=== PATIENT | male | born 1950 | race Asian ===

== ENCOUNTER 2017-08-27 16:05 | Outpatient (CLI) | payer OTHER ==
[2017-08-27] MEDS ORDERED: LORA0.5T17 PO ×2 (16:36→16:45)
[2017-08-27] MEDS ORDERED: TOPROL XL200 M1 PO (16:38)
[2017-08-27] MEDS ORDERED: CARDIZEM LA360 M1 PO (16:38)
[2017-08-27] MEDS ORDERED: ELIQUIS5 MG PO (16:39)
[2017-08-27] MEDS ORDERED: METF500T PO (16:41)
[2017-08-27] MEDS ORDERED: ZOFRAN8 MG PO (16:42)
[2017-08-27] MEDS ORDERED: HUMALOG KWI100 MG/ML SC (16:44)
[2017-08-27] MEDS ORDERED: CARDIZEM PO (22:27)
[2017-08-27] MEDS ORDERED: TYLENOL325 MG PO (22:29)
[2017-09-09] MEDS ORDERED: LORA10TA3 PO (11:08)
[2017-09-09] MEDS ORDERED: ESCI10TA PO (11:08)
[2017-09-09] MEDS ORDERED: [UNRECOGNIZED DRUG - CODE] IM (11:09)
[2017-09-09] MEDS ORDERED: RISP0.25 PO (11:09)
[2017-09-09] MEDS ORDERED: POTA10CA3 PO (11:09)
[2017-09-09] MEDS ORDERED: FURO40TA93 PO (11:09)
[2017-09-09] MEDS ORDERED: DIVALPROEX500 MG PO (11:09)
[2017-09-09] MEDS ORDERED: METH125I IM (11:09)
== END 2017-08-27 16:30 | disposition short-term general hospital (02) ==
LOC: AMB 16:05
DX: F99 Mental disorder, not otherwise specified (principal)
CPT/HCPCS: A0425; A0429

== ENCOUNTER 2017-08-27 16:34 | Emergency (ER) | payer OTHER ==
[~2017-08-27] VITALS: Ht 177.8 cm; Wt 81.6 kg
[2017-08-27] MEDS ORDERED: LORA0.5T17 PO ×2 (16:36→16:45)
[2017-08-27] MEDS ORDERED: CARDIZEM LA360 M1 PO (16:38)
[2017-08-27] MEDS ORDERED: TOPROL XL200 M1 PO (16:38)
[2017-08-27] MEDS ORDERED: ELIQUIS5 MG PO (16:39)
[2017-08-27 16:40] VITALS: BP 150/70; TEMP 97.9
[2017-08-27] MEDS ORDERED: METF500T PO (16:41)
[2017-08-27] MEDS ORDERED: ZOFRAN8 MG PO (16:42)
[2017-08-27] MEDS ORDERED: HUMALOG KWI100 MG/ML SC (16:44)
[2017-08-27 17:13] LABS: PLATELET COUNT 242 K/uL (142-355)
[2017-08-27] MEDS ORDERED: CARDIZEM PO (22:27)
[2017-08-27] MEDS ORDERED: TYLENOL325 MG PO (22:29)
== END 2017-08-27 19:28 | disposition other institution (70) ==
LOC: ED 16:34
DX: I48.91 Unspecified atrial fibrillation (principal); I50.9 Heart failure, unspecified; F03.90 Unspecified dementia, unspecified severity, without behavioral disturbance, psychotic disturbance, mood disturbance, and anxiety; Z04.6 Encounter for general psychiatric examination, requested by authority
CPT/HCPCS: 36415; 80053; 84484; 85027; 93005; 99285